=== PATIENT | male | born 1995 | race Hispanic/Latino ===

== ENCOUNTER 2018-11-06 22:54 | Emergency (ER) | payer BC, OTHER ==
[2018-11-06 23:53] LABS: Urine Blood TRACE (NEG); Urine Glucose NEGATIVE (NEG); Urine Protein NEGATIVE (NEG); Urine Specific Gravity 1.025 (1.005-1.030)
--- NOTE | 2018-11-07 00:16 | ER ---
Nurse's Notes [facility] Name: Prashant Napier Age: 23 yrs Sex: Male : 1995 Arrival Date: 11/06/2018 Time: 23:01 Bed 28 Private MD: Abel Whalen Diagnosis: Fever, unspecified;Viral syndrome Presentation: 11/06 23:10 Presenting complaint: Patient states: fever, congestion, body aches for one day. la1 Transition of care: patient was not received from another setting of care. Onset of symptoms was November 06, 2018. Risk Assessment: Do you want to hurt yourself or someone else? Patient reports no desire to harm self or others. Initial Sepsis Screen: Does the patient meet any 2 criteria? No. Patient's initial sepsis screen is negative. Does the patient have a suspected source of infection? No. Patient's initial sepsis screen is negative. Care prior to arrival: None. 23:10 Method Of Arrival: Ambulatory la1 23:10 Acuity: NATHALIA 4 la1 Historical: - Allergies: 23:11 No Known Allergies; la1 - PMHx: 23:11 None; la1 - Immunization history:: Adult Immunizations up to date. - Social history:: Smoking status: Patient/guardian denies using tobacco. - Ebola Screening: : No symptoms or risks identified at this time. - Family history:: not pertinent. - Hospitalizations: : No recent hospitalization is reported. Screenin:12 Abuse screen: Denies threats or abuse. Nutritional screening: No deficits noted. la1 Tuberculosis screening: No symptoms or risk factors identified. Fall Risk None identified. Assessment: 23:11 General: Appears in no apparent distress. Behavior is calm, cooperative. Pain: la1 Complains of pain in sore throat, body aches. Neuro: Level of Consciousness is awake, alert, obeys commands, Oriented to person, place, time, situation. Cardiovascular: Capillary refill < 3 seconds Patient's skin is warm and dry. Respiratory: Airway is patent Respiratory effort is even, unlabored, Respiratory pattern is regular, symmetrical. GI: No signs and/or symptoms were reported involving the gastrointestinal system. : No deficits noted. Vital Signs: 23:11 BP 129 / 61; Pulse 72; Resp 18; Temp 98.7; Pulse Ox 98% on R/A; Weight 58.97 kg; Height la1 5 ft. 5 in. (165.10 cm); 23:11 Body Mass Index 21.63 (58.97 kg, 165.10 cm) la1 ED Course: 23:01 Patient arrived in ED. mr 23:01 Abel Whalen DO is Private Physician. mr 23:03 Mainor Tran MD is Attending Physician. rn 23:10 Triage completed. la1 23:11 Arm band placed on left wrist. la1 23:12 Call light in reach. la1 23:18 Strep Sent. lt1 23:18 Flu Sent. lt1 11/07 00:37 No provider procedures requiring assistance completed. Patient did not have IV access rv during this emergency room visit. Administered Medications: No medications were administered Outcome: 00:15 Discharge ordered by . rn 00:38 Discharged to home ambulatory. rv 00:38 Condition: good 00:38 Discharge instructions given to patient, Instructed on discharge instructions, follow up and referral plans. Demonstrated understanding of instructions, follow-up care. 00:38 Patient left the ED. rv Signatures: Mary Ahumada mr Mainor Tran MD MD rn Attema, Lee RN RN la1 Marcel Larkin RN Maria Luz Pollard lt1
--- NOTE | 2018-11-07 00:16 | EDPHYS ---
Physician Documentation [facility] Name: Prashant Napier Age: 23 yrs Sex: Male : 1995 Arrival Date: 11/06/2018 Time: 23:01 Bed 28 Private MD: Abel Whalen ED Physician Mainor Tran HPI: 11/06 23:36 This 23 yrs old Male presents to ER via Ambulatory with complaints of Fever, rn Congestion, Abdominal Pain, Back Pain. 23:36 The patient reports fever, not measured (subjective). Onset: The symptoms/episode rn began/occurred today. Modifying factors: there are no obvious modifying factors. Severity of symptoms: At their worst the symptoms were mild in the emergency department the symptoms are unchanged. The patient has not experienced similar symptoms in the past. Reports subjective fever, muscle aches, congestion, began today, no abd pain, no chest pain/cough/sob. . Historical: - Allergies: 23:11 No Known Allergies; la1 - PMHx: 23:11 None; la1 - Immunization history:: Adult Immunizations up to date. - Social history:: Smoking status: Patient/guardian denies using tobacco. - Ebola Screening: : No symptoms or risks identified at this time. - Family history:: not pertinent. - Hospitalizations: : No recent hospitalization is reported. ROS: 23:36 Constitutional: + subjective fever Eyes: Negative for injury, pain, redness, and wound treatment rn, ENT: + nasal congestion and runny nose, + sore throat Cardiovascular: Negative for chest pain, palpitations, and edema, Respiratory: Negative for shortness of breath, cough, wheezing, and pleuritic chest pain, Abdomen/GI: Negative for abdominal pain, nausea, vomiting, diarrhea, and constipation, MS/Extremity: Negative for injury and deformity, Skin: Negative for injury, rash, and discoloration, Neuro: Negative for headache, weakness, numbness, tingling, and seizure. Exam: 23:36 Constitutional: This is a well developed, well nourished patient who is awake, alert, rn and in no acute distress. Head/Face: Normocephalic, atraumatic. Eyes: Pupils equal round and reactive to light, extra-ocular motions intact. Lids and lashes normal. Conjunctiva and sclera are non-icteric and not injected. Cornea within normal limits. Periorbital areas with no swelling, redness, or edema. ENT: No stridor, no pharyngeal swelling/exudate Neck: non-tender cervical LAD Back: No spinal tenderness. No costovertebral tenderness. Full range of motion. Skin: Warm, dry with normal turgor. Normal color with no rashes, no lesions, and no evidence of cellulitis. MS/ Extremity: Pulses equal, no cyanosis. Neurovascular intact. Full, normal range of motion. Equal circumference. Neuro: Awake and alert, GCS 15, oriented to person, place, time, and situation. Cranial nerves II-XII grossly intact. Motor strength 5/5 in all extremities. Sensory grossly intact. Cerebellar exam normal. Normal gait. Vital Signs: 23:11 BP 129 / 61; Pulse 72; Resp 18; Temp 98.7; Pulse Ox 98% on R/A; Weight 58.97 kg; Height la1 5 ft. 5 in. (165.10 cm); 23:11 Body Mass Index 21.63 (58.97 kg, 165.10 cm) la1 MDM: 23:04 Patient medically screened. rn 11/07 00:14 Differential diagnosis: viral Infection, bacterial infection, URI, UTI. Data reviewed: rn vital signs, nurses notes, lab test result(s), and as a result, I will discharge patient. Counseling: I had a detailed discussion with the patient and/or guardian regarding: the historical points, exam findings, and any diagnostic results supporting the discharge/admit diagnosis, lab results, the need for outpatient follow up, to return to the emergency department if symptoms worsen or persist or if there are any questions or concerns that arise at home. Special discussion: I discussed with the patient/guardian in detail that at this point there is no indication for admission to the hospital. It is understood, however, that if the symptoms persist or worsen the patient needs to return immediately for re-evaluation. 00:14 ED course: Flu neg, strep neg, UA without infection, will dc home as most likely viral rn infection/syndrome.. 11/06 23:09 Order name: Flu rn 11/06 23:09 Order name: Strep rn 11/06 23:37 Order name: Influenza Screen (A ; Complete Time: 00:13 EDMS 11/06 23:37 Order name: Group A Streptococcus Rapid Sc; Complete Time: 00:13 EDMS 11/06 23:46 Order name: Urine Dipstick--Ancillary (enter results) 11/06 23:53 Order name: Urine Dipstick-Ancillary; Complete Time: 00:13 EDNH 11/06 23:09 Order name: Urine Dipstick-Ancillary (obtain specimen); Complete Time: 23:45 rn Administered Medications: No medications were administered Disposition: 11/07/18 00:15 Discharged to Home. Impression: Fever, unspecified, Viral syndrome. - Condition is Stable. - Discharge Instructions: Fever, Adult, Upper Respiratory Infection, Adult. - Medication Reconciliation Form, Thank You Letter, Antibiotic Education, Prescription Opioid Use, Work release form form. - Follow up: Private Physician; When: As needed; Reason: Recheck today's complaints, Re-evaluation by your physician. - Problem is new. - Symptoms have improved. Signatures: Dispatcher [employer] [facility] Mainor Tran MD MD rn Attema, Lee, RN RN la1 Marcel Larkin RN RN rv Corrections: (The following items were deleted from the chart) 00:38 00:15 11/07/2018 00:15 Discharged to Home. Impression: Fever, unspecified; Viral rv syndrome. Condition is Stable. Forms are Medication Reconciliation Form, Thank You Letter, Antibiotic Education, Prescription Opioid Use. Follow up: Private Physician; When: As needed; Reason: Recheck today's complaints, Re-evaluation by your physician. Problem is new. Symptoms have improved. rn
== END 2018-11-07 00:38 | disposition home or self-care (01) ==
LOC: ER 22:54
DX: B34.9 Viral infection, unspecified (principal); R50.9 Fever, unspecified; R10.9 Unspecified abdominal pain; M54.9 Dorsalgia, unspecified
CPT/HCPCS: 81003; 87070; 87081; 87804; 99283

== ENCOUNTER 2019-02-25 11:31 | Emergency (ER) | payer BC ==
--- NOTE | 2019-02-25 12:24 | RAD REPORT ---
EXAM DESCRIPTION: Billy Padron (2 Views)02/25/2019 12:07 pm CLINICAL HISTORY: Cough COMPARISON: None FINDINGS: The lungs appear clear of acute infiltrate. The heart is normal size IMPRESSION: No acute abnormalities displayed
--- NOTE | 2019-02-25 12:49 | EDPHYS ---
Physician Documentation [facility] Name: Prashant Napier Age: 23 yrs Sex: Male : 1995 Arrival Date: 02/25/2019 Time: 11:35 Bed 5 Private MD: Abel Whalen ED Physician Rancho Box HPI: 02/25 12:41 This 23 yrs old Male presents to ER via Ambulatory with complaints of Back kb Pain, Congestion, Chest Pain. 12:37 The symptoms are located in the left scapular area and right scapular area. Modifying kb factors: The patient symptoms are alleviated by nothing, the patient symptoms are aggravated by any movement, sneezing. Severity of symptoms: At their worst the symptoms were moderate, in the emergency department the symptoms are unchanged. The patient has not experienced similar symptoms in the past. The patient has not recently seen a physician. 12:41 The patient presents with pain that is acute, with no known mechanism of injury. Onset: kb The symptoms/episode began/occurred 3 day(s) ago. The pain does not radiate. Associated signs and symptoms: Pertinent positives: chest pain, headache, congestion. The problem was sustained without known cause. Pt reports congestion, headache, upper back pain and chest pain that started 3-4 days ago. States pain comes when he sneezes or moves a certain way. Denies cough, fever. . Historical: - Allergies: 11:40 No Known Allergies; aa5 - PMHx: 11:40 None; aa5 - PSHx: 11:40 None; aa5 - Immunization history:: Adult Immunizations up to date. - Social history:: Smoking status: Patient/guardian denies using tobacco. - Ebola Screening: : No symptoms or risks identified at this time. ROS: 12:34 Constitutional: Negative for fever, chills, and weight loss, Respiratory: Negative for kb shortness of breath, cough, wheezing, and pleuritic chest pain, Abdomen/GI: Negative for abdominal pain, nausea, vomiting, diarrhea, and constipation, MS/Extremity: Negative for injury and deformity, Skin: Negative for injury, rash, and discoloration. 12:34 ENT: Positive for sinus congestion. 12:34 Cardiovascular: Positive for chest pain, Negative for edema, orthopnea, palpitations, paroxysmal nocturnal dyspnea. 12:34 Back: Positive for pain with movement. Exam: 12:34 Constitutional: This is a well developed, well nourished patient who is awake, alert, kb and in no acute distress. Head/Face: Normocephalic, atraumatic. ENT: Nares patent. No nasal discharge, no septal abnormalities noted. Tympanic membranes are normal and external auditory canals are clear. Oropharynx with no redness, swelling, or masses, exudates, or evidence of obstruction, uvula midline. Mucous membranes moist. Neck: Trachea midline, no thyromegaly or masses palpated, and no cervical lymphadenopathy. Supple, full range of motion without nuchal rigidity, or vertebral point tenderness. No Meningismus. Chest/axilla: Normal chest wall appearance and motion. Nontender with no deformity. No lesions are appreciated. Cardiovascular: Regular rate and rhythm with a normal S1 and S2. No gallops, murmurs, or rubs. Normal PMI, no JVD. No pulse deficits. Respiratory: Lungs have equal breath sounds bilaterally, clear to auscultation and percussion. No rales, rhonchi or wheezes noted. No increased work of breathing, no retractions or nasal flaring. Abdomen/GI: Soft, non-tender, with normal bowel sounds. No distension or tympany. No guarding or rebound. No evidence of tenderness throughout. Skin: Warm, dry with normal turgor. Normal color with no rashes, no lesions, and no evidence of cellulitis. MS/ Extremity: Pulses equal, no cyanosis. Neurovascular intact. Full, normal range of motion. Neuro: Awake and alert, GCS 15, oriented to person, place, time, and situation. Cranial nerves II-XII grossly intact. Motor strength 5/5 in all extremities. Sensory grossly intact. Cerebellar exam normal. Normal gait. Vital Signs: 11:40 BP 128 / 69; Pulse 64; Resp 18 S; Temp 98.0(TE); Pulse Ox 100% on R/A; Weight 58.97 kg aa5 (R); Height 5 ft. 5 in. (165.10 cm) (R); Pain 4/10; 12:57 BP 122 / 66; Pulse 61; Resp 14; Temp 97.6; Pulse Ox 99% on R/A; ph 11:40 Body Mass Index 21.63 (58.97 kg, 165.10 cm) aa5 MDM: 11:52 Patient medically screened. kb 12:37 Data reviewed: vital signs, nurses notes. Data interpreted: Pulse oximetry: on room air kb is 100 %. Interpretation: normal. Counseling: I had a detailed discussion with the patient and/or guardian regarding: the historical points, exam findings, and any diagnostic results supporting the discharge/admit diagnosis, radiology results, the need for outpatient follow up, a family practitioner, to return to the emergency department if symptoms worsen or persist or if there are any questions or concerns that arise at home. 02/25 11:54 Order name: Chest Pa And Lat (2 Views) XRAY; Complete Time: 12:27 kb 02/25 11:54 Order name: EKG; Complete Time: 11:55 kb 02/25 11:54 Order name: EKG - Nurse/Tech; Complete Time: 12:48 kb Administered Medications: No medications were administered Disposition: 13:54 Co-signature as Attending Physician, Rancho Box MD I agree with the assessment and kdr plan of care. Disposition: 02/25/19 12:48 Discharged to Home. Impression: Upper back pain, Acute sinusitis. - Condition is Stable. - Discharge Instructions: Sinusitis, Adult, [id number], Back Pain, Adult, [id number], Cervical Radiculopathy, [id number]. - Prescriptions for Cyclobenzaprine 10 mg Oral Tablet - take 1 tablet by ORAL route every 8 hours As needed; 21 tablet. Diclofenac Sodium 75 mg Oral Tablet, Delayed Release (E.C.) - take 1 tablet by ORAL route 2 times per day As needed; 30 tablet. - Medication Reconciliation Form, Thank You Letter, Antibiotic Education, Prescription Opioid Use form. - Work release form (02/25/19 13:03). hb - Follow up: Emergency Department; When: As needed; Reason: Worsening of condition. Follow up: Private Physician; When: 2 - 3 days; Reason: Recheck today's complaints, Continuance of care, Re-evaluation by your physician. Signatures: Dispatcher [employer] EDMS Lyssa De La Garza, Rancho Hoskins MD MD kdr Calderon, Audri RN RN aa5 Citlalli Ennis RN RN ph Baxter, Heather RN hb Corrections: (The following items were deleted from the chart) 12:58 12:48 02/25/2019 12:48 Discharged to Home. Impression: Upper back pain; Acute ph sinusitis. Condition is Stable. Forms are Medication Reconciliation Form, Thank You Letter, Antibiotic Education, Prescription Opioid Use. Follow up: Emergency Department; When: As needed; Reason: Worsening of condition. Follow up: Private Physician; When: 2 - 3 days; Reason: Recheck today's complaints, Continuance of care, Re-evaluation by your physician. kb
--- NOTE | 2019-02-25 12:49 | ER ---
Nurse's Notes [facility] Name: Prashant Napier Age: 23 yrs Sex: Male : 1995 Arrival Date: 02/25/2019 Time: 11:35 Bed 5 Private MD: Abel Whalen Diagnosis: Upper back pain;Acute sinusitis Presentation: 02/25 11:39 Presenting complaint: Patient states: frontal headache, upper back pain, and left-sided aa5 chest pain that began 3-4 days ago. Pt also reports nasal congestion. Denies cough. Transition of care: patient was not received from another setting of care. Onset of symptoms was February 2019. Risk Assessment: Do you want to hurt yourself or someone else? Patient reports no desire to harm self or others. Initial Sepsis Screen: Does the patient meet any 2 criteria? No. Patient's initial sepsis screen is negative. Does the patient have a suspected source of infection? No. Patient's initial sepsis screen is negative. Care prior to arrival: None. 11:39 Method Of Arrival: Ambulatory aa5 11:39 Acuity: NATHALIA 3 aa5 Historical: - Allergies: 11:40 No Known Allergies; aa5 - PMHx: 11:40 None; aa5 - PSHx: 11:40 None; aa5 - Immunization history:: Adult Immunizations up to date. - Social history:: Smoking status: Patient/guardian denies using tobacco. - Ebola Screening: : No symptoms or risks identified at this time. Screenin:56 Abuse screen: Denies threats or abuse. Denies injuries from another. Nutritional ph screening: No deficits noted. Tuberculosis screening: No symptoms or risk factors identified. Fall Risk None identified. Assessment: 12:15 General: Appears in no apparent distress. comfortable, slender, well groomed, Behavior ph is calm, cooperative, appropriate for age, Denies fever. Pain: Complains of pain in head, left chest and upper back. Neuro: Level of Consciousness is awake, alert, obeys commands, Oriented to person, place, time, situation, Moves all extremities. Full function Pupils are PERRLA, Reports headache frontal area. Cardiovascular: Reports chest pain, Denies fatigue, nausea, shortness of breath, vomiting, Capillary refill < 3 seconds in bilateral fingers Patient's skin is warm and dry. Respiratory: Reports cough that is pain with cough pain with respiration Airway is patent Respiratory effort is even, unlabored, Respiratory pattern is regular, symmetrical, Breath sounds are clear bilaterally. GI: No signs and/or symptoms were reported involving the gastrointestinal system. EENT: Reports nasal congestion nasal discharge. Derm: Skin is intact, is healthy with good turgor, Skin is pink, warm \T\ dry. Musculoskeletal: Circulation, motion, and sensation intact. Range of motion: intact in all extremities. Vital Signs: 11:40 BP 128 / 69; Pulse 64; Resp 18 S; Temp 98.0(TE); Pulse Ox 100% on R/A; Weight 58.97 kg aa5 (R); Height 5 ft. 5 in. (165.10 cm) (R); Pain 4/10; 12:57 BP 122 / 66; Pulse 61; Resp 14; Temp 97.6; Pulse Ox 99% on R/A; ph 11:40 Body Mass Index 21.63 (58.97 kg, 165.10 cm) aa5 ED Course: 11:35 Patient arrived in ED. mr 11:36 Abel Whalen, is Private Physician. mr 11:37 Lyssa De La Garza FNP-C is [facility]. kb 11:37 Rancho Box MD is Attending Physician. kb 11:39 Arm band placed on. aa5 11:40 Triage completed. aa5 11:43 Citlalli Ennis, RN is Primary Nurse. ph 12:09 Chest Pa And Lat (2 Views) XRAY In Process Unspecified. EDMS 12:15 Patient has correct armband on for positive identification. Bed in low position. Call ph light in reach. Side rails up X 1. 12:57 No provider procedures requiring assistance completed. Patient did not have IV access ph during this emergency room visit. Administered Medications: No medications were administered Outcome: 12:48 Discharge ordered by . kb 12:57 Discharged to home ambulatory, with significant other. ph 12:57 Condition: good 12:57 Discharge instructions given to patient, Instructed on discharge instructions, follow up and referral plans. medication usage, Demonstrated understanding of instructions, follow-up care, medications, Prescriptions given X 2. 12:58 Patient left the ED. ph Signatures: Dispatcher [employer] EDAR Lyssa De La Garza FNP-C FNP-Ckb Rivera, Mary mr Claudio, Maricarmen, RN RN aa5 Raymon, Citlalli, RN RN ph
--- NOTE | 2019-02-25 14:01 | EKG ---
Test Date: 2019-02-25 Test Time: 12:01:15 [facility] Corpsman: KAMRYN MEASUREMENT RESULTS: Intervals: Rate: 59 OR: 154 QRSD: 82 QT: 366 QTc: 362 [place]: P: 76 OR: 154 QRS: 81 T: 53 INTERPRETIVE STATEMENTS: Sinus bradycardia Otherwise normal ECG No previous ECG available for comparison Electronically Signed On 02-25-19 14:00:24 CDT by Fer Liz
== END 2019-02-25 12:58 | disposition home or self-care (01) ==
LOC: ER 11:31
DX: J01.90 Acute sinusitis, unspecified (principal)
CPT/HCPCS: 71046; 93005; 99283